=== PATIENT | female | born 1975 | race Caucasian/White ===

== ENCOUNTER 2018-06-08 00:41 | Emergency (ER) | payer BC, OTHER ==
[~2018-06-08] VITALS: Ht 160 cm; Wt 63.5 kg
[2018-06-08 00:45] VITALS: BP 120/70
--- NOTE | 2018-06-08 00:50 | NUR ---
PT AMBULATED TO LOBBY IN STABLE CONDITION.
--- NOTE | 2018-06-08 00:57 | NUR ---
PT AMBULATED TO ER BED 12
--- NOTE | 2018-06-08 00:58 | NUR ---
DR. SARGENT AT BEDSIDE EVALUATING
--- NOTE | 2018-06-08 01:00 | NUR ---
BIB SELF C/O RIGHT EYE PAIN 10/10 THAT STARTED TODAY. NO SWELLING NOTED. MILD REDNESS UNDER EYE. NO DRAINAGE NOTED AT THIS TIME. DENIES TRAUMA. PUPIL EQUAL AND REACTIVE BILATERALY. DENIES N/V/D. PT IN BED; BED IN LOWER LOCKED POSITION. ER MD MADE AWARE OF PT STATUS. WILL CONTINUE TO MONITOR.
[2018-06-08] MEDS ORDERED: TETRACAINE HCL/PF 0.5% OPTH 4 ML BTL OP ONE (01:20)
[2018-06-08] MEDS ORDERED: KETOROLAC 30 MG/ML VIAL IM ONE (02:15)
--- NOTE | 2018-06-08 03:20 | NUR ---
PT NOTIFIED THAT DR ORDER CT IMAGING. PT V/O UNDERSTANDING. AT BEDSIDE. WILL CONTINUE TO MONITOR.
--- NOTE | 2018-06-08 03:44 | NUR ---
PT WENT TO CT AT THIS TIME
--- NOTE | 2018-06-08 03:50 | NUR ---
PT returned from CT at this time.
[2018-06-08 05:15] VITALS: BP 120/70
--- NOTE | 2018-06-08 05:15 | NUR ---
Patient discharged with v/s stable. Written and verbal after care instructions given and explained. Patient alert, oriented and verbalized understanding of instructions. Ambulatory with steady gait. All questions addressed prior to discharge. ID band removed. Patient advised to follow up with PMD. Rx of naprosyn and tobramycin given. Patient educated on indication of medication including possible reaction and side effects. Opportunity to ask questions provided and answered.
== END 2018-06-08 05:15 | disposition home or self-care (01) ==
LOC: MED 00:41
DX: H10.9 Unspecified conjunctivitis (principal); R51 Headache
CPT/HCPCS: 70450; 81002; 81025; 96372; 99284; J1885

== ENCOUNTER 2019-01-04 10:21 | Emergency (ER) | payer BC ==
[~2019-01-04] VITALS: Ht 157.5 cm; Wt 64.0 kg
[2019-01-04 10:32] VITALS: BP 112/55
--- NOTE | 2019-01-04 10:36 | NUR ---
PT AMBULATED TO ER BED 12
--- NOTE | 2019-01-04 10:45 | NUR ---
43 Y FEMALE BIB FAMILY C/O BILAT LOWER ABDOMINALCRAMPING RADIATING TO EPIGASTRIC AREA 03/21 X1 DAY. GAURDING BEHAVIOR. PT REPORTS NAUSEA BUT DENIES VOMITING/FEVER. PT STATES THAT SHE GETS THESE PAINS EVERYTIME SHE GETS HER MENSTRUAL CYCLE BUT "I CANT TAKE IT ANYMORE". PT CURRENTLY ON HER MENSTRUAL PERIOD. LMP 01/03/19. TACHY AT 105. [id number]. BED IS DOWN, LOCKED, BED RAIL X 1, ERMD TO SEE PT. HX: NONE RX: NONE
--- NOTE | 2019-01-04 11:04 | NUR ---
DR FARNSWORTH AT BEDSIDE
[2019-01-04] MEDS ORDERED: KETOROLAC 60 MG/2 ML VIAL IM ONE (11:10)
[2019-01-04] MEDS ORDERED: ONDANSETRON 4 MG ODT PO ONE (11:10)
--- NOTE | 2019-01-04 11:19 | NUR ---
TORADOL AND ZOFRAN ADMINISTERED BY STACIE CM
--- NOTE | 2019-01-04 12:00 | NUR ---
PAIN 5/10
--- NOTE | 2019-01-04 12:24 | NUR ---
US AT BEDSIDE
--- NOTE | 2019-01-04 12:55 | NUR ---
US FINISHED AT BEDSIDE
--- NOTE | 2019-01-04 13:48 | NUR ---
PT REQUESTING WATER, PT INSTRUCTED TO WAIT FOR US RESULTS
--- NOTE | 2019-01-04 13:49 | NUR ---
VSS AT THIS TIME. PAIN 7/10 WITH MOVEMENT.
[2019-01-04 14:27] VITALS: BP 102/56
--- NOTE | 2019-01-04 14:27 | NUR ---
Patient discharged with v/s stable. Written and verbal after care instructions given and explained REGARDING POSSIBLE OVARIAN CYST RUPTURE AND DYSMENORRHEA. Patient alert, oriented and verbalized understanding of instructions. Ambulatory with steady gait. All questions addressed prior to discharge. ID band removed. Patient advised to follow up with PMD. Rx of NORCO AND ZOFRAN given. Patient educated on indication of medication including possible reaction and side effects. INSTRUCTED TO NOT DRIVE AFTER TAKING NORCO. Opportunity to ask questions provided and answered.
== END 2019-01-04 14:27 | disposition home or self-care (01) ==
LOC: MED 10:21
DX: N94.6 Dysmenorrhea, unspecified (principal); R11.0 Nausea; Z98.890 Other specified postprocedural states
CPT/HCPCS: 76830; 81025; 93976; 96372; 99284; J1885; Q0092; Q0162